=== PATIENT | female | born 1995 | race Caucasian/White ===

== ENCOUNTER 2023-12-24 14:26 | Inpatient (IN) | payer BC ==
[2023-12-24] MEDS ORDERED: Sodium Chloride 0.9% 10 ML Syringe FLUSH PRN (15:15)
[2023-12-24] MEDS ORDERED: Lidocaine 1% 30 ML SDV INJECT ONE (15:15)
[2023-12-24] MEDS ORDERED: Carboprost Tromethamine 250 MCG/1 ML Amp IM PRN (15:15)
[2023-12-24] MEDS ORDERED: Tranexamic Acid 1,000 MG in Sodium Chloride 0.9% 100 ML IV PRN (15:15)
[2023-12-24] MEDS ORDERED: fentaNYL 100 MCG/2 ML SDV EPIDUR ONE (15:17)
[2023-12-24 15:41] LABS: HEMATOCRIT 38.6 % (37.0-47.0); HEMOGLOBIN 12.8 g/dL (12.0-16.0); MEAN CORPUSCULAR HEMOGLOBIN 31.8 pg (27.0-34.0); MEAN CORPUSCULAR HGB CONC 33.2 g/dL (33.0-35.0); MEAN CORPUSCULAR VOLUME 95.8 fL (80-100); RED BLOOD CELL COUNT 4.03 10^6/uL (4.2-5.4); WHITE BLOOD CELL COUNT,WBC 13.6 10^3/uL (5.0-10.0)
[2023-12-24 16:33] LABS: CREATININE,URINE RAND 123.56 mg/dL (No establ ref range); PROTEIN CREATININE RATIO,URINE 170.8 mg/g (<150.0); PROTEIN,URINE RANDOM 21.1 mg/dL (0.0-11.9)
[2023-12-24] MEDS ORDERED: hydrOXYzine HCl 25 MG Tab PO PRN (17:15)
[2023-12-24] MEDS: Misoprostol 25 MCG (1/4 of 100 MCG) Tab VAG ONE (17:29)
[2023-12-24] MEDS: fentaNYL 100 MCG/2 ML SDV IVPUSH STA (18:01)
[2023-12-24] MEDS: fentaNYL 100 MCG/2 ML SDV ONE (18:46)
[2023-12-24] MEDS ORDERED: fentaNYL 100 MCG/2 ML SDV IVPUSH PRN (20:08)
[2023-12-24] MEDS: Lactated Ringers 1,000 ML IV ONE (21:00)
[2023-12-24] MEDS: Ondansetron 4 MG/2 ML SDV IVPUSH PRN (21:10)
[2023-12-24] MEDS ORDERED: Bupivacaine 0.25% 10 ML SDV ONE (21:15)
[2023-12-24] MEDS ORDERED: fentaNYL 100 MCG/2 ML SDV ONE (21:15)
[2023-12-24] MEDS: Lactated Ringers 1,000 ML IV SCH (21:30)
[2023-12-24] MEDS ORDERED: ePHEDrine 50 MG/ML SDV IVPUSH PRN (21:38)
[2023-12-24] MEDS ORDERED: Phenylephrine HCl In 0.9% NaCl 1 MG/10 ML Syringe IVPUSH PRN (21:38)
[2023-12-24] MEDS ORDERED: Ropivacaine 200 MG in Premix Bag 1 BAG EPIDUR SCH (21:45)
[2023-12-24] MEDS: Oxytocin/Normal Saline 30 UNIT/500 ML BAG IV SCH (21:52)
[2023-12-25] MEDS: Acetaminophen 325 MG Tab PO PRN (06:27)
[2023-12-25] MEDS: Misoprostol 400 MCG (4 X 100 MCG TAB) RECTAL PRN (16:47)
[2023-12-25] MEDS: Methylergonovine 0.2 MG/1 ML Amp IM PRN (16:48)
[2023-12-25] MEDS ORDERED: Tranexamic Acid 1,000 MG in Sodium Chloride 0.9% 100 ML IV PRN (17:05)
[2023-12-25] MEDS ORDERED: Sodium Chloride 0.9% 10 ML Syringe FLUSH PRN (17:05)
[2023-12-25] MEDS ORDERED: Simethicone 80 MG Tab.Chew PO PRN (17:05)
[2023-12-25] MEDS ORDERED: Oxytocin 10 Units/1 ML SDV IM PRN (17:05)
[2023-12-25] MEDS ORDERED: Carboprost Tromethamine 250 MCG/1 ML Amp IM PRN (17:05)
[2023-12-25] MEDS: Docusate Sodium 100 MG Cap PO PRN (20:09)
[2023-12-25] MEDS: Benzocaine/Menthol 20%-0.5% Spray 78 GM Cannister TOP PRN (20:10)
[2023-12-25] MEDS: Ibuprofen 800 MG Tab PO PRN (20:11)
[2023-12-26 07:18] LABS: HEMATOCRIT 36.3 % (37.0-47.0); MEAN CORPUSCULAR HEMOGLOBIN 32.1 pg (27.0-34.0); MEAN CORPUSCULAR HGB CONC 33.1 g/dL (33.0-35.0); MEAN CORPUSCULAR VOLUME 97.1 fL (80-100); RED BLOOD CELL COUNT 3.74 10^6/uL (4.2-5.4); WHITE BLOOD CELL COUNT,WBC 18.9 10^3/uL (5.0-10.0)
[2023-12-26] MEDS: Ferrous Sulfate 325 MG Tab PO SCH (07:57)
[2023-12-26] MEDS: Prenatal Multivitamin with Calcium/Folic Acid/Iron Tab PO SCH (09:35)
[2023-12-26] MEDS: Acetaminophen 325 MG Tab PO PRN (16:41)
== END 2023-12-27 11:31 | disposition home or self-care (01) | DRG 560 ==
LOC: DL.OBCHECK 14:26 → DL.OB 15:16 → OBSVTOIN 12-25 16:13
PROVIDERS: ADMIT Family Medicine; ATTEND Family Medicine
PROC: 10E0XZZ Delivery of Products of Conception, External Approach (ICD-10-PCS; principal; 2023-12-25)
PROC: 10907ZC Drainage of Amniotic Fluid, Therapeutic from Products of Conception, Via Natural or Artificial Opening (ICD-10-PCS; 2023-12-25)
PROC: 3E033VJ Introduction of Other Hormone into Peripheral Vein, Percutaneous Approach (ICD-10-PCS; 2023-12-25)
PROC: 3E0P7VZ Introduction of Hormone into Female Reproductive, Via Natural or Artificial Opening (ICD-10-PCS; 2023-12-25)
PROC: 3E0R3BZ Introduction of Anesthetic Agent into Spinal Canal, Percutaneous Approach (ICD-10-PCS; 2023-12-25)
PROC: 00HU33Z Insertion of Infusion Device into Spinal Canal, Percutaneous Approach (ICD-10-PCS; 2023-12-25)
DX: O99.12 Other diseases of the blood and blood-forming organs and certain disorders involving the immune mechanism complicating childbirth (principal); D69.6 Thrombocytopenia, unspecified; O75.2 Pyrexia during labor, not elsewhere classified; O72.1 Other immediate postpartum hemorrhage; O70.0 First degree perineal laceration during delivery; Z3A.39 39 weeks gestation of pregnancy; Z37.0 Single live birth; Z90.89 Acquired absence of other organs
CPT/HCPCS: 36415; 51702; 59409; 82570; 84156; 85027; A9270-GY; J2210; J2405; J2590; J3010; J7120